=== PATIENT | male | born 1995 | race Caucasian/White ===

== ENCOUNTER 2023-06-22 13:28 | Emergency (ER) | payer OTHER, SELFPAY ==
--- NOTE | ~2023-06-22 | XR_ITS ---
EXAMINATION: XR lumbar spine 2-3V DATE: 06/22/2023 14:00 INDICATION: Low back pain. TECHNIQUE: 3 views of lumbar spine were obtained. COMPARISON: None. FINDINGS: There is 6 degrees levocurvature of lumbar spine. Vertebral body heights are normal. There is mildly decreased disc height at L4-L5. The facet joints are normal. IMPRESSION: 1. Mild degenerative disc disease at L4-L5. Reviewed, dictated and finalized at location A.
[2023-06-22 13:41] VITALS: BP 138/84; PULSE 84; RESP 16; TEMP 36.8; O2SAT 100
--- NOTE | 2023-06-22 13:42 | ED.BACK ---
HPI - Back Pain/Injury General Chief Complaint: Back Pain/Injury Stated Complaint: Back pain Time Seen by Provider: 06/22/23 13:45 Source: patient and family Mode of arrival: ambulatory Limitations: no limitations History of Present Illness HPI Narrative: Lam is a 27-year-old male patient presenting to the clinic today with complaints of right-sided low back pain with radiation of pain down his right leg x1 day. He also reports that he has a cyst to the right lower back that he has been following up with with his PCP. He reports he does have a history of right-sided sciatica. States he was bowling yesterday evening and possibly aggravated this sciatica. He is unable to find a very comfortable position. Rates his pain currently a 8/10. He denies any saddle anesthesia or loss of bowel bladder. He denies any recent fall or injury. Related Data Allergies Allergy/AdvReac Type Severity Reaction Status Date / Time No Known Allergies Allergy Unverified 06/22/23 13:39 Review of Systems Review of Systems: Pertinent positives per HPI. Patient denies any fever, chills, rash, headache, visual changes, dizziness, cough, runny nose, sore throat, shortness of breath, chest pain, palpitations, nausea, vomiting, diarrhea, constipation, abdominal pain, or any urinary issues. 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 There is no relevant family history pertinent to the patient complaint. Exam Narrative: General: Well-developed, well nourished, in no apparent distress Head: Normocephalic, atraumatic. Cardio: Regular rate and rhythm, s1 and s2 normal, no murmur appreciated. Resp: Clear to auscultation bilaterally, no rhonchi, rales, wheezing or rubs. Musculoskeletal: No deformity, tender to palpation over the right lower back and right hip, limited range of motion in his back due to pain, negative foot drop, positive straight leg test on the right at 20? and positive straight leg test on the left at approximately 40?, patellar reflexes 2+ bilaterally, muscle strength strong and equal, peripheral pulse strong, no edema, no cyanosis, normal gait and station Course Course Emergency Course: Portions of this record may have been created with voice recognition software. Level of Care: Express Care Visit Vital Signs Vital signs: Vital Signs Temperature 36.8 C 06/22/23 13:41 Pulse Rate 84 06/22/23 13:41 Respiratory Rate 16 06/22/23 13:41 Blood Pressure 138/84 06/22/23 13:41 Pulse Oximetry 100 06/22/23 13:41 Temperature 36.8 C 06/22/23 13:41 Pulse Rate 84 06/22/23 13:41 Respiratory Rate 16 06/22/23 13:41 Blood Pressure 138/84 06/22/23 13:41 Pulse Oximetry 100 06/22/23 13:41 Vital signs reviewed MDM - Back Pain/Injury MDM Narrative Medical decision making narrative: At the time of visit patient is resting comfortably on the exam table. X-ray lumbar spine was performed and shows no sign of fracture or malalignment. I suspect patient has low back pain with right sciatica. Will send in prescription for Medrol Dosepak and muscle relaxer. Supportive measures were discussed with the patient he voiced understanding discharge instructions agrees to olga
== END 2023-06-22 14:14 | disposition home or self-care (01) ==
PROVIDERS: Emergency Provider Nurse Practitioner Family
DX: M54.41 Lumbago with sciatica, right side (principal); M51.36 Other intervertebral disc degeneration, lumbar region
CPT/HCPCS: 72100; 99213; G0463

== ENCOUNTER 2023-08-20 04:28 | Day surgery (SDC) | payer OTHER, SELFPAY ==
--- NOTE | 2023-08-17 17:57 | PC.NURSE ---
Report to the Outpatient Waiting Room, entrance under the green pavilion located off [facility], at time 0600 on date 08/20/23. Planned Procedure Time: 0730. Time changes happen often and if your time is changed the preop area will call you the afternoon before. - You and your visitor will be asked to self-screen and do not enter if you have any COVID symptoms. - A mask is optional within the hospital at this time. Patients may have clear liquids (water, carbonated beverages, clear teas, apple juice) until 3 hours prior to surgery with a maximum of 20 ounces. 0430 - No food from midnight until time of surgery - Infants may have breast milk until 4 hours before surgery, formula 6 hours prior to surgery. - Children will be allowed to drink immediately following surgery. If applicable, please bring a bottle or sippy cup to assist with drinking. Juice, water, soda, and popsicles are readily available. For infants on formula, please bring formula the day of surgery. Pacifiers are allowed. Take the following medications with a SIP of water the morning of surgery:none DO NOT STOP ANY OF YOUR OTHER PRESCRIPTION MEDICATIONS PRIOR TO SURGERY ?EXCEPT THE FOLLOWING Medications to discontinue per physician none Date to take last dose none Please no make-up, nail croatian, hairspray, perfume, deodorant, or body powder the day of surgery. No jewelry (including any body piercings) or valuables the day of surgery, leave them at home. Please take a shower or bath the night before, or the morning of, surgery with an antibacterial soap. Wear comfortable, loose fitting clothing. Children are encouraged to wear pajamas. - Jewelry must be removed prior to entering the operating room. Rings and piercings that are not removed may be cut off. - The hospital will not accept responsibility for valuables. - Please leave all valuables, including medications, at home the day of surgery. If you are going home after surgery, a licensed bus driver must drive you home. - NO public transportation without another adult if you receive anesthesia. - We recommend that an adult stay with you for 24 hours following discharge. - We also recommend that you do not drive, make important decision, drink alcoholic beverages, or take any drugs that were not prescribed by your health care provider for at least 24 hours after your discharge time. For Pediatric surgeries, we recommend two adults accompany the child home. Follow any additional instructions given to you from your surgeon. If you or anyone in your household have experienced Covid symptoms in the past week, please notify your surgeon or the nurse liaison at the phone number below for possible testing. Telephone instructions given to Patient- Lam Parson and asked if any additional questions and then verbalized understanding. Patient advised to call surgeon office or pre surgery nurse liaison [phone] if any additional questions.
[2023-08-17 18:02] VITALS: BMI 31.0
[2023-08-20 07:00] VITALS: BP 150/97; PULSE 82; RESP 14; TEMP 36.5; O2SAT 100
[2023-08-20] MEDS: LACTATED RINGERS 1,000 ML 30 ML IV CONT (07:00)
--- NOTE | 2023-08-20 07:13 | P.PNAN_ITS ---
Anes - Initial Pre Proc Eval Procedure: Operation Date: 08/20/23 07:30 Proposed Procedures p Excisional Biopsy of Right Lower Back Mass - Iliana Sanz MD Date/Time: 08/20/23 07:13 Surgeon: Iliana Sanz MD Pre Op Diagnosis: right lower back subcutaneous mass Patient Data Age: 27 Gender: M Height: 1.85 m Weight: 106.8 kg Allergies Allergy/AdvReac Type Severity Reaction Status Date / Time No Known Allergies Allergy Verified 08/17/23 17:50 Patient hx anesthesia problems: none Family hx anesthesia problems: none Results Review: All pre-operative results and documents have been reviewed as part of the pre- operative evaluation. 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 Gender identity (if verbalized by the patient): Male Spiritual care concerns: No Agree to blood products: Yes Anes - Eval Final PreProcedure Day of Procedure 08/20/23 07:13 Patient weight: overweight Heart: regular rate and rhythm Lungs: clear to auscultation Airway: Mallampati scale class II Neurological: alert and oriented Last oral intake: >/= 8 hours ASA classification: II Emergent: no Anesthetic plan: proceed Anesthesia type and monitoring: general GIVS and standard monitoring Results Review: All pre-operative results and documents have been reviewed as part of the pre- operative evaluation. Informed Consent: The patient's anesthetic plan and its attendant risks and benefits were discussed with the patient/family/POA. Questions were solicited and answers provided to the satisfaction of the patient/family/POA.
--- NOTE | 2023-08-20 07:22 | PM.IMHP ---
H&P: HPI History of Present Illness Date/Time: 08/20/23 07:22 Chief Complaint: R lower back mass, pain Narrative: Lam is a 27 y/o male who presents to the office at the request of Sherry Dodd PA-C for evaluation of a right sided back mass. Patient states he first noticed this about 10 years ago. He states the mass has gradually increased in size. He denies any redness or drainage. He reports mild discomfort to his right lower side. He does have occasional sciatic pain. 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 Gender identity (if verbalized by the patient): Male Spiritual care concerns: No Agree to blood products: Yes Meds Home Medications and Allergies Allergies Allergy/AdvReac Type Severity Reaction Status Date / Time No Known Allergies Allergy Verified 08/17/23 17:50 Exam Const: General: cooperative, comfortable and no acute distress Resp: Auscultation: clear to auscultation bilaterally Cardio: Rate: regular rate Rhythm: regular rhythm GI: Inspection: normal to inspection Skin: Other: R lower back SQ mass - no s/s active infection, well circumscribed Assessment and Plan Assessment and plan (1) Subcutaneous mass of back: Code(s): R22.2 - Localized swelling, mass and lump, trunk Status: Acute Assessment and Plan: will setup for excisional biopsy in OR
--- NOTE | 2023-08-20 07:24 | WPDHPUPDATE1 ---
History and Physical Update Update Date/Time: 08/20/23 07:24 History and Physical has been reviewed, including an updated exam of the patient. There are NO changes in the patient's condition. Risks, benefits, and alternatives have been discussed and questions answered. Patient agrees to proceed with procedure.
[2023-08-20] MEDS: ceFAZolin 2 GM/D5W 50 ML 2 GM/50 ML BAG IVPB (07:30)
[2023-08-20] MEDS: BUPIVACAINE/EPINEPHRINE 0.5% 10 ML VIAL 50 ML INFILTRATE (07:40)
--- NOTE | 2023-08-20 08:16 | W.PM.PROC2 ---
Procedure Note - Detailed Date of Procedure 08/20/23 Pre-op Diagnosis right lower back subcutaneous mass Post-op Diagnosis Other (10 x 7 cm sebaceous cyst) Procedure Performed excisional biopsy right lower back sebaceous cyst measuring 10 x 7 cm Surgeon Iliana Sanz MD Anesthesia MAC and Local Indications 27-year-old male presenting to the office with a large cystic mass of his right lower back. The patient reports that the mass has slowly gotten bigger over time and has become more symptomatic. Findings 10 x 7 cm sebaceous cyst Description of Procedure The patient was taken the operating room and placed in the lateral position. After adequate induction of MAC anesthesia, the patient was prepped and draped in the normal sterile fashion. A time-out was then done to verify the patient's identity, as well as the procedure being performed. I began by localizing the area in and around this cystic mass in the right lower back. I then made an incision over the most prominent area of the mass. Upon getting through the dermis, it was noted this was a large sebaceous cyst. Using both blunt and sharp dissection with the Bovie cautery, I was able to slowly excise the cyst. Given the large size of the cyst, there were noted to be small areas of rupture during extraction. Once the cyst was completely excised, it was sent to pathology for further review. I then copiously irrigated the cavity. Hemostasis was gained with the Bovie cautery. Further local anesthetic was placed. Of note the cyst was measured to be 10 x 7 cm. This was contained within the subcutaneous tissue. I then closed the subcutaneous tissue with 3-0 Vicryl suture. The skin was closed with 4-0 Monocryl subcuticular suture. Dermabond was placed on the. The patient tolerated the procedure well and was alert and awake in the operating room postoperatively. He will be transferred to the recovery room in stable condition. Estimated Blood Loss 5 Drains No Packing No Pathology Yes Complications No immediate complications Condition Stable Disposition PACU [facility] Billing Surgery - Charge Forward: Surgery Billing
[2023-08-20 08:19] VITALS: BP 122/40; PULSE 83; RESP 20; O2SAT 98
[2023-08-20 08:45] VITALS: BP 128/76; PULSE 67
== END 2023-08-20 09:07 | disposition home or self-care (01) ==
PROVIDERS: PCP Family Medicine; Visit Provider Surgery
PROC: (CPT 11406; principal; 2023-08-20 07:30)
DX: L72.0 Epidermal cyst (principal)
CPT/HCPCS: 11406; 12034; 88304; J0690; J2250; J2405; J2704; J3010; J7120

== ENCOUNTER 2025-02-28 14:47 | Outpatient (CLI) | payer OTHER, SELFPAY ==
--- NOTE | ~2025-02-28 | MR_ITS ---
MRI of the lumbar spine Clinical History: Radiculopathy Technique: Axial T2-weighted images, and sagittal T1-weighted, T2-weighted, and T2 fat-sat images wer e acquired. Following intravenous administration of 20 cc MultiHance gadolinium, T1-weighted fat-sat imaging was performed in the axial and sagittal planes. Findings: There is no fracture or subluxation of the lumbar spine. Vertebral bodies maintain normal h eight and alignment. No bone marrow signal abnormality seen. At L1-L2, L2-L3, L3-L4, there is no disc bulge or herniation. There is mild facet arthropathy results . No spinal canal stenosis or neural foraminal narrowing at these levels. At L4-L5, there is moderate degenerative disc narrowing. There is mild diffuse disc bulge with modera te facet arthropathy. No central canal stenosis or neural foraminal narrowing. Tiny annular fissure p resent. At L5-S1, there is mild degenerative disc narrowing. There is a mild diffuse disc bulge with superimp osed right paracentral disc extrusion extending inferiorly, and probably impinging the descending rig ht S1-S2 level nerve root. There is mild to moderate right neural foraminal narrowing, and moderate l eft neural foraminal narrowing. No fady canal stenosis at this level. No definite abnormal postcontrast enhancement identified. Paravertebral soft tissues are unremarkable . Impression: Large right paracentral disc extrusion at L5-S1 extending inferiorly, and probably impinging the desc ending right S1-S2 level nerve root. Mild degenerative spondylosis at L4-L5, as above. Reviewed, dictated and finalized at [facility]. Impression: Large right paracentral disc extrusion at L5-S1 extending inferiorly, and proba eugene impinging the descending right S1-S2 level nerve root. Mild degenerative spondylosis at L4-L5, as above.
== END 2025-02-28 14:48 | disposition home or self-care (01) ==
PROVIDERS: PCP Student in an Organized Health Care Education/Training Program; Visit Provider Student in an Organized Health Care Education/Training Program
DX: M54.41 Lumbago with sciatica, right side (principal); M47.26 Other spondylosis with radiculopathy, lumbar region; M51.27 Other intervertebral disc displacement, lumbosacral region
CPT/HCPCS: 72158; A9577

== ENCOUNTER 2025-08-25 07:12 | Outpatient (CLI) | payer OTHER, SELFPAY ==
--- NOTE | ~2025-08-25 | MR_ITS ---
EXAM/PROCEDURE: MR lumbar spine wo con HISTORY: Radiculopathy COMPARISON: February 28, 2025 TECHNIQUE: Multiplanar lumbar spine MRI without contrast FINDINGS: Degenerative changes present throughout the lumbar spine involving disc spaces and posterior elements. No acute or aggressive bony or soft tissue process seen. Conus tapers normally at L1. Level specific findings as follows: T12-L1: Mild degenerative change L1-2: Mild degenerative change L2-3: Mild degenerative change L3-4: Mild degenerative change L4-5: Moderately severe desiccation and disc space narrowing with small posterior annular tear. Broad-based disc bulging similar to the previous exam. No spinal canal stenosis or significant neural foraminal narrowing appreciated. L5-S1: More advanced desiccation and disc space narrowing with moderately severe broad-based disc bulging as well as small to moderate size right-sided paracentral protrusion with component extruding component extending caudally along the posterior margin of S1. This is not clearly changed from the February 2025 exam. Compare images 29 and 30 of series 7 on today's exam with images 29 and 30 of series 7 on the February exam. Mild to moderate bilateral neural foraminal narrowing at this level right worse than left. IMPRESSION: No gross interval change compared to the February 28, 2025 exam with most advanced degenerative changes at L5-S1. No acute or aggressive bony or soft tissue process seen. Reviewed, dictated and finalized at location A. 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 No acute or aggressive bony or soft tissue proce ss seen.
== END 2025-08-25 07:13 | disposition home or self-care (01) ==
PROVIDERS: PCP Student in an Organized Health Care Education/Training Program
DX: M54.17 Radiculopathy, lumbosacral region (principal)
CPT/HCPCS: 72148